=== PATIENT | male | born 1990 | race Two or more races ===

== ENCOUNTER 2018-05-24 08:26 | Emergency (ER) | payer OTHER ==
[~2018-05-24] VITALS: Ht 175.3 cm; Wt 149.2 kg
[~2018-05-24 08:26] MED LIST: MOBIC15 MG PO; ORPH100T PO; SYNTHROID150 MCG
== END 2018-05-24 14:30 | disposition home or self-care (01) ==
LOC: ER 08:26
DX: K52.9 Noninfective gastroenteritis and colitis, unspecified (principal)

== ENCOUNTER 2019-06-30 08:23 | Emergency (ER) | payer OTHER ==
[~2019-06-30] VITALS: Ht 175.3 cm; Wt 154.2 kg
== END 2019-06-30 14:46 | disposition home or self-care (01) ==
LOC: ER 08:23
DX: K52.89 Other specified noninfective gastroenteritis and colitis (principal)

== ENCOUNTER 2023-04-29 06:30 | Emergency (ER) | payer OTHER ==
[~2023-04-29] VITALS: Ht 175.3 cm; Wt 140.6 kg
[2023-04-29 09:17] LABS: HEMATOCRIT 41.8 % (39.0-48.0); HEMOGLOBIN 14.4 g/dL (13-16.00); MEAN CELL VOLUME 85.9 fL (80.0-100.00); MEAN CORPUSCULAR HEMOGLOBIN 29.6 pg (27.00-32.0); MEAN CORPUSCULAR HGB CONC 34.4 g/dl (32.0-36.0); PLATELET COUNT 307 K/uL (150-450); RED BLOOD COUNT 4.86 M/uL (4.00-6.00); RED CELL DISTRIBUTION WIDTH 14.3 % (11.5-14.5)
[2023-04-29 09:41] LABS: ALBUMIN 3.9 gm/dL (3.4-5.0); BILIRUBIN TOTAL 0.55 mg/dL (0.3-1.2); BILIRUBIN,CONJUGATED 0.23 mg/dL (0.0-0.2); BILIRUBIN,UNCONJUGATED 0.32 mg/dL (0.0-0.6); CALCIUM 9.8 mg/dL (8.5-10.1); CREATININE SERUM 0.8 mg/dL (0.70-1.30); GFR 110.66; GLOBULINA 4.4 G/DL (2.4-3.5); POTASSIUM 3.93 mEq/L (3.5-5.1); TOTAL PROTEIN 8.3 gm/dL (6.4-8.2)
[2023-04-29] MEDS ORDERED: OMEPRAZOLE40 MG PO (10:50)
[2023-04-29] MEDS ORDERED: LEVSIN/SL0.125 MG SL (10:50)
[2023-04-29] MEDS ORDERED: CIPRO500 MG PO (10:50)
== END 2023-04-29 11:19 | disposition home or self-care (01) ==
LOC: ER 06:30
PROVIDERS: General Practice
DX: K80.50 Calculus of bile duct without cholangitis or cholecystitis without obstruction (principal); R10.13 Epigastric pain

== ENCOUNTER 2024-03-12 05:58 | Day surgery (SDC) | payer OTHER ==
[~2024-03-12 05:58] MED LIST changes: +CIPRO500 MG PO; +LEVSIN/SL0.125 MG SL; +OMEPRAZOLE40 MG PO
[2024-03-12] MEDS ORDERED: DIPHENHYDRAMINE HCL 50 MG/ML VIAL 1ML IV ONE (08:30)
[2024-03-12] MEDS ORDERED: MEPERIDINE HCL/PF 50 MG/ML VIAL IV ONE (08:30)
[2024-03-12] MEDS ORDERED: MIDAZOLAM HCL/PF 5 MG/ML VIAL IV ONE (08:30)
== END 2024-03-12 10:35 | disposition home or self-care (01) ==
LOC: AMB-ENDOS 05:58
PROVIDERS: ATTEND Surgery
DX: K31.7 Polyp of stomach and duodenum (principal); K29.00 Acute gastritis without bleeding; K44.9 Diaphragmatic hernia without obstruction or gangrene; E66.09 Other obesity due to excess calories

== ENCOUNTER 2024-08-26 09:54 | Emergency (ER) | payer OTHER ==
[~2024-08-26] VITALS: Ht 175.3 cm; Wt 139.3 kg
[2024-08-26] MEDS ORDERED: ACETAMINOPHEN 500 MG GEL..CAP PO STA (10:40)
[2024-08-26] MEDS ORDERED: ACETAMINOPHEN 500 MG GEL..CAP PO ONE (10:48)
== END 2024-08-26 12:38 | disposition home or self-care (01) ==
LOC: ER 09:55
DX: R53.81 Other malaise (principal); J10.1 Influenza due to other identified influenza virus with other respiratory manifestations; Z20.822 Contact with and (suspected) exposure to COVID-19